=== PATIENT | female | born 1990 | race Two or more races ===

== ENCOUNTER 2024-05-10 14:00 | Outpatient (RCR) | payer MEDICAID, SELFPAY ==
--- NOTE | 2024-04-27 11:56 | PT.OIERPT ---
PT OP Initial Eval Patient Information Outpatient Physical Therapy Treatment Date: 04/27/24 Visit Reasons: CERVICALGIA Medical Diagnosis: M54.2 Treatment Dx #1: Neck Pain Start of Care: 04/27/24 Date of Onset: 11/10/23 Smoking Status Smoking Status: Never smoker Initial Assessment Subjective: Pt is a 33 y/o female reports of neck pain after she attempted back flip in a trampoline where she landed on her head. Pt was wearing a neck brace for several weeks and still use intermittently. Pt continues to have left arm pain with numbness. Pt has limitation with turning her head, lifting, chores, self care, cooking, cleaning, and performing recreational activities. Objective: C/S AROM: all motions are 75 % towards end range with pain BUE AROM: all motions are WNL BUE MMTs: grossly 3+/5 Scapula MMTs: grossly 3/5 DNF Endurance Test: 5 sec Assessment: Pt demonstrate neck pain with c/s instability s/p injury leading to difficulty with ADLs. Pt will attempt physical therapy if pain persist Pt will be refer back to provider for further consultation. Short Term and Jail Goals 1) Increase C/S AROM WNL in 6 wks to be able to perform chores 2) Decrease neck pain to 2/10 in [address] be able to drive 3) Increase BUE MMTs grossly to 4-/5 in 6 wks to be able to perform lifting activities 4) Increase scapula MMTs grossly to 3+/5 in 6 wks to be able to perform recreational activities 5) Indep with HEP Treatment Plan 1) Manual Therapy 2) Therapeutic Activities 3) Therapeutic Exercises 4) Modalities (ice, heat, traction) Frequency and Duration: 2 x wk for 6 wks Certification Dates: 04/27/24 to 07/28/24 Procedure Charges OP PT Eval Mod Complex 30 minutes: Yes
--- NOTE | 2024-05-02 12:16 | PT.ODAYNRPT ---
PT Outpatient Daily Note OP Daily Note Outpatient Physical Therapy Treatment Date: 05/02/24 Visit Reasons: CERVICALGIA Subjective: Pt's neck is about the same and feels sensitive. Objective: Please see flow chart for list of ther ex performed Assessment: tolerate exercises with minimal pain Plan: Continue with PT Length of Time (minutes) of Treatment: 30 Minutes Procedure Charges Therapeutic Exercise 30 minutes: Yes
--- NOTE | 2024-05-04 09:38 | PT.ODAYNRPT ---
PT Outpatient Daily Note OP Daily Note Outpatient Physical Therapy Treatment Date: 05/04/24 Visit Reasons: CERVICALGIA Subjective: Pt reports neck is sore today continues to have pain and there are times where she is truning her head and feels like it gets stuck. Objective: Please see flow sheet for ther ex list. Assessment: Performed MT occipital release pt tolerated well, minimal TTP. Plan: Assess response to treatment. Length of Time (minutes) of Treatment: 30 Minutes Procedure Charges Therapeutic Exercise 30 minutes: Yes
--- NOTE | 2024-05-10 15:09 | PT.ODAYNRPT ---
PT Outpatient Daily Note OP Daily Note Outpatient Physical Therapy Treatment Date: 05/10/24 Visit Reasons: CERVICALGIA Subjective: Pt reports neck is doing the same, continues to feel stiffness. Objective: Please see flow sheet for ther ex list. Assessment: Pt presents in clinic with c/o stiffness and pain delaying intervention porgression. Plan: Continue with POC. Length of Time (minutes) of Treatment: 30 Minutes Procedure Charges Therapeutic Exercise 30 minutes: Yes
== END 2024-05-16 23:59 | disposition home or self-care (01) ==
LOC: CPTX 14:00
PROVIDERS: PCP Nurse Practitioner Family; Referring Provider Nurse Practitioner Family; Visit Provider Nurse Practitioner Family
DX: M54.2 Cervicalgia (principal); M79.602 Pain in left arm; R20.0 Anesthesia of skin; S19.9XXD Unspecified injury of neck, subsequent encounter; X58.XXXD Exposure to other specified factors, subsequent encounter
CPT/HCPCS: 97110; 97162

== ENCOUNTER 2024-06-03 10:00 | Outpatient (RCR) | payer MEDICAID, SELFPAY ==
--- NOTE | 2024-05-18 10:20 | PT.ODAYNRPT ---
PT Outpatient Daily Note OP Daily Note Outpatient Physical Therapy Treatment Date: 05/18/24 Visit Reasons: neck pain Subjective: Pt's neck is better, however, she went running and notice some pain down her arms. Objective: Please see flow chart for list of ther ex performed Assessment: tolerate exercises with minimal pain. Pt advised to stop running in the meantime due to c/s instability and wait a few more weeks until her neck is more stable to re-attempt running. Plan: Continue with PT Length of Time (minutes) of Treatment: 30 Minutes Procedure Charges Therapeutic Exercise 30 minutes: Yes
--- NOTE | 2024-05-25 10:16 | PTNOTE_ITS ---
PT Outpatient Daily Note OP Daily Note Outpatient Physical Therapy Treatment Date: 05/25/24 Visit Reasons: neck pain Subjective: Pt's neck has been feeling better, however, notice more right side tension MAKI lately. The MAKI gets so bad that she throws up. Objective: Palpation: Increase tone/tension suboccipitals R>L Assessment: decrease suboccipital tone post STM. Pt is progressing with neck musculatures flexibility. Plan: Continue with PT Length of Time (minutes) of Treatment: 30 Minutes Procedure Charges Therapeutic Exercise 15 minutes: Yes Manual [employer] 15 minutes: Yes
--- NOTE | 2024-05-27 11:03 | PT.ODAYNRPT ---
PT Outpatient Daily Note OP Daily Note Outpatient Physical Therapy Treatment Date: 05/27/24 Visit Reasons: neck pain Subjective: Pt's neck was really sore after last session, however, STM helped with the Headache Objective: Please see flow chart for list of ther ex performed Assessment: improved suboccippitals tone pre and post STM. Pt continues to improve with c/s mobility Plan: Continue with PT Length of Time (minutes) of Treatment: 30 Minutes Procedure Charges Traction Mechanical: Yes Therapeutic Exercise 15 minutes: Yes
--- NOTE | 2024-06-03 11:08 | PTNOTE_ITS ---
PT OP Progress/Discharge Note Date of Service: 06/03/24 Progress Note/DC Note Progress Note/Discharge Note: DC Note Patient Information Visit Reasons: neck pain Service Discharge Date: 06/03/24 Status Subjective: Pt's neck is better but feels she hit a plateau. Pt notice decrease pain and headache but continues to have arm pain. Lately Pt has been having spinal pain down to her lower back. Due to pain Pt has limitation with lifting, chores, self care, cooking, cleaning, and performing recreational activities. Objective: C/S AROM: all motions are WFL BUE AROM: all motions are WNL BUE MMTs: grossly 4-/5 Scapula MMTs: grossly 3+/5 DNF Endurance Test: 8 sec Assessment: Pt demonstrate improved c/s mobility and strength, however, continues to have radicular pain down the arm and spine. Pt has plateau towards goals and will no longer benefit from physical therapy. Recommend c/s MRI to help rule in/out nature of pain. Pt was instructed on HEP last session and educated to continue exercises to maintain overall mobility; thank you for your referrals Plan: D/C home with HEP and follow up with MD HUNTER Recommend c/s MRI Procedure Charges Therapeutic Exercise 15 minutes: Yes Manual [employer] 15 minutes: Yes
== END 2024-06-15 23:59 | disposition home or self-care (01) ==
LOC: CPTX 10:00
PROVIDERS: PCP Nurse Practitioner Family; Referring Provider Nurse Practitioner Family; Visit Provider Nurse Practitioner Family
DX: M54.2 Cervicalgia (principal); M79.602 Pain in left arm; R20.0 Anesthesia of skin
CPT/HCPCS: 97012; 97110; 97140